=== PATIENT | male | born 1960 | race Caucasian/White ===

== ENCOUNTER 2019-10-07 15:50 | Observation (INO) ==
[2019-10-07] MEDS ORDERED: ATIVAN ONE (16:04)
[2019-10-07 16:20] LABS: BASO# 0.03 X1000 (0.0-0.2); BASO% 0.3 % (0.0-0.8); EOS# 0.16 X1000 (0.0-0.7); EOS% 1.4 % (0.0-10.0); HEMATOCRIT 45.4 % (42.0-52.0); HEMOGLOBIN 14.5 g/dL (14.0-18.0); IMM GRAN# 0.02 X1000 (0.0-0.04); IMM GRAN% 0.2 % (0.0-0.5); LYMPH# 1.75 X1000 (1.2-3.4); LYMPH% 15.8 % (20.5-51.1); MCH 29.7 PG (27-31); MCHC 31.9 g/dL (33-37); MCV 92.8 FL (81-99); MONO# 0.73 X1000 (0.11-0.59); MONO% 6.6 % (1.7-9.3); NEUT# 8.37 X1000 (1.4-6.5); NEUT% 75.7 % (42.2-75.2); PLT 310 X1000 (130-400); RBC 4.89 XMIL (4.7-6.1); WBC 11.06 X1000 (4.8-10.8)
--- NOTE | 2019-10-07 16:37 | Diag Imaging Result Doc PS360 ---
EXAM: CT HEAD/C-SPINE W/O CONTRAST 10/07/2019 HISTORY: Syncope; seizure TECHNIQUE: This exam was performed using automated exposure control, adjustment of mA or kV according to patient size, and/or use of iterative reconstruction technique. COMMENT: Head: There is no evidence of intracranial mass effect, bleed, or abnormal extra-axial fluid collection. The visualized paranasal sinuses are clear. The calvarium is intact. Cervical spine: There is degenerative change in the anterior atlantoaxial joint. There is no prevertebral soft tissue swelling. There is no evidence of acute fracture or subluxation. There are minimal degenerative facet changes particularly at the C4-5 level on the right. IMPRESSION: No evidence of acute intracranial or cervical spine abnormality. Electronically signed by Chencho Roque 10/07/2019 4:34 PM
[2019-10-07] MEDS ORDERED: ATIVAN IV ONE (16:38)
[2019-10-07 16:40] LABS: AGAP 12; ALBUMIN 4.1 g/dL (3.5-5.0); ALKALINE PHOSPHATASE 106 U/L (32-122); BUN 18 mg/dL (8-22); CALCIUM 8.9 mg/dL (8.8-10.2); CHLORIDE 105 mmol/L (98-107); COSMO 284; CREATININE 0.7 mg/dL (0.7-1.2); ESTIMATED GFR > 60; GLUCOSE 107 mg/dL (70-104); GOT 16 U/L (10-34); GPT 23 U/L (10-44); MAGNESIUM 1.8 mg/dL (1.5-2.7); POTASSIUM 4.2 mmol/L (3.5-5.1); SODIUM 141 mmol/L (136-145); TCO2 24 mmol/L (25-35); TOTAL BILIRUBIN < 0.15 mg/dL (0.20-1.00); TOTAL PROTEIN 6.6 g/dL (6.3-8.3)
[2019-10-07 16:55] LABS: URINE SOURCE CLEAN CATCH
[2019-10-07 17:00] LABS: BILIRUBIN URINE NEGATIVE (NEGATIVE); BLOOD URINE SMALL (NEGATIVE); COLOR YELLOW; GLUCOSE URINE NEGATIVE (NEGATIVE); KETONE URINE NEGATIVE (NEGATIVE); LEUKOCYTES URINE NEGATIVE (NEGATIVE); NITRITE URINE NEGATIVE (NEGATIVE); PROTEIN URINE 30 mg/dL (NEGATIVE); SP GRAVITY URINE 1.039; TURBIDITY URINE CLEAR (CLEAR); UR EPITHELIAL CELLS <10 /HPF (<10); URINE BACTERIA NEGATIVE /HPF; URINE RBC <10 /HPF (<10); URINE WBC <10 /HPF (<10); UROBILINOGEN URINE 3 mg/dL (NORMAL)
--- NOTE | 2019-10-07 17:07 | PROVIDER DOCUMENTATION ---
This chart was entered by Vy Borja Scribe, acting as scribe for May Canales CRNP. HPI-Neurological Disorder - General Chief Complaint: Seizure Stated Complaint: seizure Time Seen by Provider: 10/07/19 16:03 Source: patient, family (fiance) - History of Present Illness-Neuro Nature of Presenting Problem: 59 y/o male presents to the ED after syncopal episode this morning and possible seizure activity. The patient states he was sitting at home, went to stand, felt dizzy, and fell to the floor. States he landed on the L side of his head. Patient's , who is at bedside, reports this afternoon patient was sitting and both of his arms began to shake uncontrollably. Reports he then stood up and both his arms continued to shake. States that patient was talking during ep isode. Reports she is unsure exactly how long the episode lasted, however she thinks more than a few minutes. EMS was then called and report patient appeared to be postictal upon arrival. Patient also reports he has been having intermittent L sided CP for the past week. Denies radiation of CP. Reports L shoulder, L forearm, headache, neck pain, and low back pain currently. Denies focal weakness, paresthesia, nausea/vomiting, or SOB. The patient denies drug and/or alcohol use and also denies previous h/o seizure. Reports family hx of seizures. Headache Location: reports: global Severity: reports: moderate Onset/Duration: reports: this morning Timing: reports: still present Context: reports: other (syncopal episode) Character of Altered Mental Status: reports: disoriented, seizure activity Any recent trauma/injury?: reports: none (prior to syncope/fall this morning) New weakness or altered sensation location:: reports: none Cognitive Baseline: alert, oriented x3 Gait Baseline: other (walks with crutches d/t "bad knees and hips") Associated Symptoms: reports: headache, dizziness, neck/back pain. denies: short of breath, fever/chills, nausea, paresthesia, vomiting Similar Symptoms Previously?: No Recently seen or treated by another doctor?: No - Seizure First time to have a seizure?: Yes Witnessed seizure?: Yes (By ) How many seizure episodes?: 1 Episode details: reports: unknown duration Approximate time of the last seizure?: 16:04 (Seizure-like activity in ED witnessed by physician ) Episode Frequency: no prior episodes Status Epilepticus: No Preceding symptoms/context:: none Character of Seizure: reports: shaking in one area (BUE). denies: lost consci ousness Post-ictal Symptoms: reports: confusion, speech difficulty Seizure related injury: none Review of Systems - Adult - REVIEW OF SYSTEMS - ADULT Constitutional: denies: chills, fever, weight gain, weight loss Eyes: reports: no symptoms reported Ears, Nose, Mouth & Throat: reports: no symptoms reported Cardiovascular: reports: see HPI, chest pain (intermittent for 1 week) Respiratory: reports: no symptoms reported. denies: cough, shortness of breath Gastrointestinal: denies: diarrhea, nausea, vomiting Genitourinary: reports: no symptoms reported Musculoskeletal: reports: see HPI, bone pain (L forearm), back pain, joint pain (L shoulder) Integumentary: reports: no symptoms reported Neurological: reports: see HPI, dizziness/vertigo, headache/migraines, seizure, syncope. denies: paresthesia Psychiatric: reports: no symptoms reported Endocrine: reports: no symptoms reported Past History - Adult - PAST MEDICAL HISTORY-ADULT Review of Records: reports: Nursing Assessment Review, Medications Reviewed Cardiovascular: reports: HTN, CO Musculoskeletal: reports: chronic pain, neck/back injury - PRIOR SURGERIES/PROCEDURES Surgical/Procedure History: reports: cardiac stent, orthopedic (extremity), back/neck - IMMUNIZATION STATUS Childhood Immunizations: See Nurse Assessment Flu Vaccine: See Nurse Assessment - FAMILY HISTORY Family History: seizures - SOCIAL HISTORY Smoking: denies Substance Use: denies Living Situation: family Physical Exam- Neurological - Physical Exam-Neuro Exam Limited by: Pt began seizing during initial examination @ 1604; patient reexamined 1630 Initial Vital Signs Reviewed: Yes General Appearance: alert. negative: obtunded Eye Exam: bilateral eye: normal inspection, PERRL (2mm), EOMI HENMT: normocephalic/atraumatic, moist mucous membranes. negative: angioedema Head Injury: tenderness (L parietal). negative: active bleeding, Buck's Sign, raccoon eyes Neck: full range of motion, supple, normal inspection, other (TTP L paraspinous muscles). negative: limited range of motion Respiratory: chest non-tender, lungs clear, normal breath sounds, no pleuratic chest pain, no respiratory distress, no accessory muscle use. negative: rales, rhonchi, wheezing Cardiovascular: regular rate, rhythm, no gallop Peripheral Pulses: radial (R): 2+, radial (L): 2+, dorsalis-pedis (R): 2+, dorsalis-pedis (L): 2+ Extremity: normal range of motion, normal gait, normal inspection, normal capillary refill, pelvis stable, tenderness (L shoulder; L forearm; L hand). 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 negative: facial asymmetry, facial droop, facial weakness, gaze palsy Coordination/Gait: normal finger to nose, normal gait Motor/Sensory: no motor deficit, no sensory deficit, no pronator drift. negative: sensory deficit, weak motor strength RUE, weak motor strength LUE, weak motor strength RLE, weak motor strength LLE Neurologic: senior sales operations analyst II-XII nml as tested, grossly normal. negative: abnormal gait, aphasia, EOM palsy, facial droop, focal weakness, motor weakness, sensory deficit Integumentary: normal color, warm/dry. negative: diaphoresis Psych/Mental Status: normal mood/affect, normal thought content, normal thought process, oriented x 3 - Glascow Coma Scale Best Eye Response: (4) open spontaneously Best Verbal Response: (5) oriented Best Motor Response: (6) obeys commands Total Glascow Score: 15 Progress - PLAN OF CARE/RESULTS Progress/Plan/Lab Results: Vital Signs - 8 hr 10/07/19 15:46 10/07/19 16:00 10/07/19 16:30 Temperature 98.1 F 97.8 F Pulse Rate 87 85 81 Respiratory Rate 18 22 18 Blood Pressure 122/75 139/89 142/90 O2 Sat by Pulse Oximetry 95 96 96 10/07/19 17:32 10/07/19 19:46 Temperature Pulse Rate 100 H 73 Respiratory Rate 25 H 23 Blood Pressure 128/93 109/83 O2 Sat by Pulse Oximetry 94 L Laboratory Results - last 24 hr 10/07/19 10/07/19 10/07/19 16:05 16:05 16:05 WBC 11.06 H RBC 4.89 Hgb 14.5 Hct 45.4 MCV 92.8 MCH 29.7 MCHC 31.9 L RDW Std Deviation 14.0 Plt Count 310 MPV 9.0 Immature Gran % (Auto) 0.2 Neut % (Auto) 75.7 H Lymph % (Auto) 15.8 L [place] % (Auto) 6.6 Eos % (Auto) 1.4 Baso % (Auto) 0.3 Immature Gran # (Auto) 0.02 Neut # (Auto) 8.37 H Lymph # (Auto) 1.75 [place] # (Auto) 0.73 H Eos # (Auto) 0.16 Baso # (Auto) 0.03 Sodium 141 Potassium 4.2 Chloride 105 Carbon Dioxide 24 L Anion Gap 12 BUN 18 Creatinine 0.7 Estimated GFR/1.73 m2 > 60 BUN/Creatinine Ratio 26 Glucose 107 H Calculated Osmolality 284 Calcium 8.9 Magnesium 1.8 Total Bilirubin < 0.15 L AST 16 ALT 23 Alkaline Phosphatase 106 Creatine Kinase Troponin T High Sens Total Protein 6.6 Albumin 4.1 Globulin 3.0 Albumin/Globulin Ratio 2.0 Plasma Lactate Urine Source Urine Color Urine Turbidity Urine pH Ur Specific [place] Urine Protein Ur Glucose (Stick) Ur Ketones (Stick) Urine Blood Urine Nitrite Urine Bilirubin Urobilinogen Dipstick Urine Leukocytes Urine WBC (Auto) Urine RBC (Auto) U Epithel Cells (Auto) Urine Bacteria (Auto) Urine Opiates Screen Ur Oxycodone Screen Urine Methadone Screen U Propoxyphene Qual Ur Barbituates Screen Ur Tricyclics Screen Ur Phencyclidine Scrn Ur Amphetamines Screen U Methamphetamines Scrn U Benzodiazepines Scrn Urine Cocaine Screen U Cannabinoids Screen Plasma/Serum Ethyl Alc 10/07/19 10/07/19 10/07/19 16:05 16:05 16:34 WBC RBC Hgb Hct MCV MCH MCHC RDW Std Deviation Plt Count MPV Immature Gran % (Auto) Neut % (Auto) Lymph % (Auto) [place] % (Auto) Eos % (Auto) Baso % (Auto) Immature Gran # (Auto) Neut # (Auto) Lymph # (Auto) [place] # (Auto) Eos # (Auto) Baso # (Auto) Sodium Potassium Chloride Carbon Dioxide Anion Gap BUN Creatinine Estimated GFR/1.73 m2 BUN/Creatinine Ratio Glucose Calculated Osmolality Calcium Magnesium Total Bilirubin AST ALT Alkaline Phosphatase Creatine Kinase 131 Troponin T High Sens 15 Total Protein Albumin Globulin Albumin/Globulin Ratio Plasma Lactate 0.8 Urine Source Urine Color Urine Turbidity Urine pH Ur Specific [place] Urine Protein Ur Glucose (Stick) Ur Ketones (Stick) Urine Blood Urine Nitrite Urine Bilirubin Urobilinogen Dipstick Urine Leukocytes Urine WBC (Auto) Urine RBC (Auto) U Epithel Cells (Auto) Urine Bacteria (Auto) Urine Opiates Screen Ur Oxycodone Screen Urine Methadone Screen U Propoxyphene Qual Ur Barbituates Screen Ur Tricyclics Screen Ur Phencyclidine Scrn Ur Amphetamines Screen U Methamphetamines Scrn U Benzodiazepines Scrn Urine Cocaine Screen U Cannabinoids Screen Plasma/Serum Ethyl Alc 10/07/19 10/07/19 16:46 16:46 WBC RBC Hgb Hct MCV MCH MCHC RDW Std Deviation Plt Count MPV Immature Gran % (Auto) Neut % (Auto) Lymph % (Auto) [place] % (Auto) Eos % (Auto) Baso % (Auto) Immature Gran # (Auto) Neut # (Auto) Lymph # (Auto) [place] # (Auto) Eos # (Auto) Baso # (Auto) Sodium Potassium Chloride Carbon Dioxide Anion Gap BUN Creatinine Estimated GFR/1.73 m2 BUN/Creatinine Ratio Glucose Calculated Osmolality Calcium Magnesium Total Bilirubin AST ALT Alkaline Phosphatase Creatine Kinase Troponin T High Sens Total Protein Albumin Globulin Albumin/Globulin Ratio Plasma Lactate Urine Source CLEAN CATCH Urine Color YELLOW Urine Turbidity CLEAR Urine pH 6.0 Ur Specific [place] 1.039 Urine Protein 30 A Ur Glucose (Stick) NEGATIVE Ur Ketones (Stick) NEGATIVE Urine Blood SMALL A Urine Nitrite NEGATIVE Urine Bilirubin NEGATIVE Urobilinogen Dipstick 3 A Urine Leukocytes NEGATIVE Urine WBC (Auto) <10 Urine RBC (Auto) <10 U Epithel Cells (Auto) <10 Urine Bacteria (Auto) NEGATIVE Urine Opiates Screen NONE DETECTED Ur Oxycodone Screen PRESUMPTIVE POSITIVE A Urine Methadone Screen NONE DETECTED U Propoxyphene Qual NONE DETECTED Ur Barbituates Screen NONE DETECTED Ur Tricyclics Screen NONE DETECTED Ur Phencyclidine Scrn NONE DETECTED Ur Amphetamines Screen NONE DETECTED U Methamphetamines Scrn NONE DETECTED U Benzodiazepines Scrn PRESUMPTIVE POSITIVE A Urine Cocaine Screen NONE DETECTED U Cannabinoids Screen PRESUMPTIVE POSITIVE A Plasma/Serum Ethyl Alc Orders Category Date Time Status Admit - [facility] Routine AdmDCTranf 10/07/19 18:35 Active Activity - Up with Assistance ORDERED Care 10/07/19 18:35 Active DVT/PE Risk Assess/Protocol [QM] ORDERED Care 10/07/19 18:35 Active Finger Stick Blood Sugar (ED) DIRECTED Care 10/07/19 15:55 Active Intake and Output-Strict ORDERED Care 10/07/19 18:35 Active Notify MD if DIRECTED Care 10/07/19 15:55 Active Nursing- Obtain EKG ONCE Care 10/07/19 16:03 Active Saline Loc NOW Care 10/07/19 15:55 Active Vital Signs Order Q 8-HR ASSESS Care 10/07/19 18:35 Active Z-Document. for Tele Applied ORDERED Care 10/07/19 18:37 Active Regular Diet Diet 10/07/19 18:[address] HEAD/C-SPINE W/O CONTRAST [CT] Stat Exams 10/07/19 16:08 Completed FOREARM-LEFT [RAD] Stat Exams 10/07/19 16:52 Completed HAND COMPLETE LEFT [RAD] Stat Exams 10/07/19 17:02 Completed LUMBAR SPINE [RAD] Stat Exams 10/07/19 16:52 Completed SHOULDER-LEFT [RAD] Stat Exams 10/07/19 16:52 Completed ALCOHOL BLOOD Stat Lab 10/07/19 16:05 Completed CBC WITH ELECTRONIC DIFF [HEME] Stat Lab 10/07/19 16:05 Completed CBC WITH NO DIFF [HEME] Routine Lab 10/08/19 06:00 Ordered CK PROFILE [SP CHEM] Stat Lab 10/07/19 16:05 Completed CK TOTAL [CHEM] Routine Lab 10/08/19 06:00 Ordered COMPREHENSIVE METABOLIC PANEL [CHEM] Routine Lab 10/08/19 06:00 Uncollected COMPREHENSIVE METABOLIC PANEL [CHEM] Stat Lab 10/07/19 16:05 Completed LACTATE, PLASMA [CHEM] Stat Lab 10/07/19 16:34 Completed MAGNESIUM [CHEM] Routine Lab 10/08/19 06:00 Uncollected MAGNESIUM [CHEM] Stat Lab 10/07/19 16:05 Completed TROPONIN T HIGH SENSITIVITY Stat Lab 10/07/19 16:05 Completed TSH Routine Lab 10/08/19 06:00 Uncollected URINALYSIS W/POSS RFLX CULT [URINALYSIS] Stat Lab 10/07/19 16:46 Completed URINE CULTURE [RM] Routine Lab 10/07/19 18:36 Ordered URINE DRUG SCREEN PL Stat Lab 10/07/19 16:46 Completed Lorazepam [Ativan] Med 10/07/19 16:04 Discontinued 2 mg .ROUTE .STK-MED ONE Lorazepam [Ativan] Med 10/07/19 16:38 Discontinued 2 mg IV NOW ONE Oxycodone/APAP 10 mg/325 mg [Percocet-10] Med 10/07/19 18:37 Active 1 each PO Q4H PRN PRN Seizure, New Onset Stat Oth 10/07/19 15:55 Ordered Telemetry [OM.EQ] Routine Oth 10/07/19 18:35 Active EKG [EKG] Stat Ther 10/07/19 16:03 Draft Transfer/Admit Order [TRANSFER] Routine Transfer 10/07/19 18:52 Ordered Lab results, imaging results, plan of care, and need for admission discussed with patient and who agree with and verbalize understanding. Plan of care discussed and formulated in conjunction with Dr. Stephens who co-examined the patient. Result Diagrams: 10/07/19 16:05 10/07/19 16:05 - REASSESSMENT Reassessment #1 Time Reassessed: 16:04 Reassessment Comment: Uncontrollable L arm shaking; no loss of consciousness. Dr Stephens @ bedside - EKG 1 Time of EKG reading by physician:: 16:09 EKG Read and Signed by:: Isiah Stephens EKG Interpretation (*Must complete 3 of following elements*): Abnormal Rate: 100 Rhythm: NSR [place]: left Comments: inferior infarct age undetermined - XRAY 1 XRAY: Bilateral XRAY Study: Lumbar Spine Impression: See EMR Report ([facility] - [address] [place] [address] [address], [place] [address] [facility] - [address] [place] [address] Department of Imaging Patient: EMMIE BRENNER Date: 10/07/19MR#: [id number] : 1960DM Status: REG ERAcct#: [id number] Age/Sex: 59/MRoom/Bed: Loc: P.ED Ordering Ph ysician: May Monzon Family Physician: None,PCP Reason for Procedure: Fall Signed EXAM: LUMBAR SPINE 10/07/2019 HISTORY: Fall TECHNIQUE: Lumbosacral spine with obliques six views COMMENT: There has been posterior lateral fusion with pedicle screws and rods at L5-S1. There is no evidence of acute fracture or subluxation. The disc spaces are fairly well-maintained. IMPRESSION: No evidence of acute bony abnormality. Electronically signed by Chencho Roque 10/07/2019 6:18 PM 10/07/191817 Interpreting Physician: Chencho Roque MD Dictated Date/Time: 10/07/191816 cc: May Canales; None,PCP) 2 XRAY: Left XRAY Study: Forearm Impression: See EMR Report ([facility] - [address] [place] [address] [address], [place] [address] [facility] - [address] [id number] Department of Imaging Patient: EMMIE BRENNER Date: 10/07/19MR#: [id number] : 1960DM Status: [facility] ERAcct#: [id number] Age/Sex: 59/MRoom/Bed: Loc: P.ED Ordering Physician: May Monzon Family Physician: None,PCP Reason for Procedure: Fall ___ Signed EXAM: FOREARM-LEFT 10/07/2019 HISTORY: Fall TECHNIQUE: Left forearm two views COMMENT: There is no evidence of fracture or dislocation. There is negative ulnar variance. IMPRESSION: No acute bony abnormality. Electronically signed by Chencho Roque 10/07/2019 6:17 PM 10/07/191816 Interpreting Physician: Chencho Roque MD Dictated Date/Time: 10/07/191815 cc: May Canales; None,PCP) 3 XRAY: Left XRAY Study: Shoulder Impression: See EMR Report ([facility] - [address], [address], [place] [address] [address] Department of Imaging Patient: EMMIE BRENNER [facility] Date: 10/07/19MR#: [id number] : 1960DM Status: [facility]#: [id number] Age/Sex: 59/MRoom/Bed: Loc: P.ED Ordering Physician: May Monzon Family Physician: None,PCP Reason for Procedure: Fall Signed EXAM: SHOULDER-LEFT 10/07/2019 HISTORY: Fall TECHNIQUE: Left shoulder three views COMMENT: There are some degenerative changes in the acromioclavicular joint. There are bone islands in the humeral head. There is no evidence of acute fracture or dislocation. IMPRESSION: No acute bony abnormality. Electronically signed by Chencho Roque 10/07/2019 6:16 PM 10/07/191815 Interpreting Physician: Chencho Roque MD Dictated Date/Time: 10/07/191815 cc: May Canales; None,PCP) 4 XRAY: Left XRAY Study: Hand Impression: See EMR Report ([facility] - [address], [address], [place] [address] [address] Department of Imaging Patient: EMMIE BRENNER [facility] Date: 10/07/19MR#: [id number] : 1960DM Status: REG [facility]#: [id number] Age/Sex: 59/MRoom/Bed: Loc: P.ED Ordering Physician: May Monzon Family Physician: None,PCP Reason for Procedure: Syncope; fall Signed EXAM: HAND COMPLETE LEFT 10/07/2019 HISTORY: Syncope; fall TECHNIQUE: Left hand three views COMMENT: There is a cyst in the lateral scaphoid. There is no evidence of fracture dislocation or periosteal reaction. IMPRESSION: No evidence of acute bony disease. Electronically signed by Chencho Roque 10/07/2019 6:19 PM 10/07/191818 Interpreting Physician: Chencho Roque MD Dictated Date/Time: 10/07/191817 cc: May Canales; None,PCP) - CT/MRI 1 CT Study: Cervical Spine, Head Impression: See EMR Report (EXAM: CT HEAD/C-SPINE W/O CONTRAST 10/07/2019 HISTORY: Syncope; seizure TECHNIQUE: This exam was performed using automated exposure control, adjustment of mA or kV according to patient size, and/or use of iterative reconstruction technique. COMMENT: Head: There is no evidence of intracranial mass effect, bleed, or abnormal extra-axial fluid collection. The visualized paranasal sinuses are clear. The calvarium is intact. Cervical spine: There is degenerative change in the anterior atlantoaxial joint. There is no prevertebral soft tissue swelling. There is no evidence of acute fracture or subluxation. There are minimal degenerative facet changes particularly at the C4-5 level on the right. IMPRESSION: No evidence of acute intracranial or cervical spine abnormality. Electronically signed by Chencho Roque 10/07/2019 4:34 PM) - CONSULTS/PCP/HOSPITALIST Notification #1 *Consult/PCP/Hospitalist*: Dr. Campuzano, Hospitalist Time Discussed: 18:03 Reason/Comments: Seizure like activity; syncope Consult Disposition: Will see in ED, Admit Departure - Departure Date of Disposition Decision: 10/07/19 Time of Disposition Decision: 18:06 DIAGNOSIS: Seizure-like activity Syncopal episodes Qualifiers: Syncope type: unspecified Qualified Code(s): R55 - Syncope and collapse Head injury Qualifiers: Encounter type: initial encounter Qualified Code(s): S09.90XA - Unspecified injury of head, initial encounter Disposition: ADMITTED INPATIENT 09 Certified Medical Emergency: Emergent Condition: Stable Referrals and Follow-Ups: None,PCP [Primary Care Provider] - - Critical Care Note This patient required my direct & personal management of CC.: No Attestation - Physician/ TI Attestation Patient care was provided by Advanced Practice Provider:: Yes Advanced Practice Provider:: May Canales Advanced Practice Provider documentation review:: The Mid-level provider documentation, treatment plan and medical decision making was reviewed by the physician who agrees with all treatment and medical decision making by the MLP. The physician spent face to face time with patient:: Yes (Angelo) Advanced Practice Provider documentation review:: Supervising physician onsite and consulted in the evaluation and care of this patient. The physician did have a face to face encounter with the patient. This chart was documented by the indicated scribe, (Vy Borja, Sussy) and accurately reflects the services I performed and decisions made by me, May Canales CRNP, as attested by the provider's signature.
[2019-10-07 17:08] LABS: UR BENZODIAZEPIN QUAL PRESUMPTIVE POSITIVE (NONE DETECT); UR CANNABINOIDS QUAL PRESUMPTIVE POSITIVE (NONE DETECT)
[2019-10-07 17:09] LABS: UR AMPHETAMINES QUAL NONE DETECTED (NONE DETECT); UR BARBITUATES QUAL NONE DETECTED (NONE DETECT); UR COCAINE QUAL NONE DETECTED (NONE DETECT); UR METHADONE QUAL NONE DETECTED (NONE DETECT); UR METHAMPHETAMINE QUAL NONE DETECTED (NONE DETECT); UR OPIATES QUAL NONE DETECTED (NONE DETECT); UR OXYCODONE QUAL PRESUMPTIVE POSITIVE (NONE DETECT); UR PCP QUAL NONE DETECTED (NONE DETECT); UR PROPOXYPHENE QUAL NONE DETECTED (NONE DETECT); UR TCA QUAL NONE DETECTED (NONE DETECT)
--- NOTE | 2019-10-07 17:13 | EKG Report ---
Test Performed on : 10/07/2019 4:09:17 PM Test Reason : Syncope Blood Pressure : / mmHG Vent. Rate : 100 BPM Atrial Rate : 100 BPM P-R Int : 164 ms QRS Dur : 100 ms QT Int : 360 ms P-R-T Axes : 055 -31 034 degrees QTc Int : 464 ms Normal sinus rhythm. Left axis deviation Inferior infarct , age undetermined Abnormal ECG No previous ECGs available Unconfirmed Result
--- NOTE | 2019-10-07 18:18 | Diag Imaging Result Doc PS360 ---
EXAM: SHOULDER-LEFT 10/07/2019 HISTORY: Fall TECHNIQUE: Left shoulder three views COMMENT: There are some degenerative changes in the acromioclavicular joint. There are bone islands in the humeral head. There is no evidence of acute fracture or dislocation. IMPRESSION: No acute bony abnormality. Electronically signed by Chencho Roque 10/07/2019 6:16 PM
--- NOTE | 2019-10-07 18:19 | Diag Imaging Result Doc PS360 ---
EXAM: FOREARM-LEFT 10/07/2019 HISTORY: Fall TECHNIQUE: Left forearm two views COMMENT: There is no evidence of fracture or dislocation. There is negative ulnar variance. IMPRESSION: No acute bony abnormality. Electronically signed by Chencho Roque 10/07/2019 6:17 PM
--- NOTE | 2019-10-07 18:20 | Diag Imaging Result Doc PS360 ---
EXAM: LUMBAR SPINE 10/07/2019 HISTORY: Fall TECHNIQUE: Lumbosacral spine with obliques six views COMMENT: There has been posterior lateral fusion with pedicle screws and rods at L5-S1. There is no evidence of acute fracture or subluxation. The disc spaces are fairly well-maintained. IMPRESSION: No evidence of acute bony abnormality. Electronically signed by Chencho Roque 10/07/2019 6:18 PM
--- NOTE | 2019-10-07 18:21 | Diag Imaging Result Doc PS360 ---
EXAM: HAND COMPLETE LEFT 10/07/2019 HISTORY: Syncope; fall TECHNIQUE: Left hand three views COMMENT: There is a cyst in the lateral scaphoid. There is no evidence of fracture dislocation or periosteal reaction. IMPRESSION: No evidence of acute bony disease. Electronically signed by Chencho Roque 10/07/2019 6:19 PM
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
[2019-10-07] MEDS: PERCOCET-10 PO PRN (21:08)
[2019-10-07] MEDS: NICODERM PATCH TD SCH (23:45)
[2019-10-08] MEDS: PERCOCET-10 PO PRN ×3 (04:00→13:07)
[2019-10-08 05:51] LABS: HEMATOCRIT 46.8 % (42.0-52.0); HEMOGLOBIN 14.7 g/dL (14.0-18.0); MCH 29.3 PG (27-31); MCHC 31.4 g/dL (33-37); MCV 93.4 FL (81-99); MPV 9.5 FL (7.4-10.4); RBC 5.01 XMIL (4.7-6.1); RDW 14.1 % (11.5-14.5); WBC 8.76 X1000 (4.8-10.8)
[2019-10-08 06:00] LABS: AGAP 12; ALKALINE PHOSPHATASE 105 U/L (32-122); BUN 19 mg/dL (8-22); CALCIUM 8.8 mg/dL (8.8-10.2); CHLORIDE 107 mmol/L (98-107); CK TOTAL 84 U/L (24-204); COSMO 288; CREATININE 0.5 mg/dL (0.7-1.2); ESTIMATED GFR > 60; GLUCOSE 111 mg/dL (70-104); GOT 13 U/L (10-34); GPT 20 U/L (10-44); SODIUM 143 mmol/L (136-145); TCO2 24 mmol/L (25-35); TOTAL BILIRUBIN < 0.15 mg/dL (0.20-1.00); TOTAL PROTEIN 6.5 g/dL (6.3-8.3)
[2019-10-08] MEDS ORDERED: PERCOCET-10 PO PRN (08:08)
[2019-10-08] MEDS: NICODERM PATCH TD SCH (08:34)
[2019-10-08] MEDS ORDERED: NICODERM PATCH TD SCH (09:00)
[2019-10-08] MEDS ORDERED: PRINIVIL PO SCH (09:00)
[2019-10-08] MEDS ORDERED: PLAVIX PO SCH (09:00)
[2019-10-08] MEDS ORDERED: LEXAPRO PO SCH (09:00)
[2019-10-08] MEDS ORDERED: MOBIC PO SCH (09:00)
[2019-10-08] MEDS ORDERED: DEPAKOTE PO SCH (09:00)
[2019-10-08] MEDS ORDERED: LAMICTAL PO SCH (11:45)
--- NOTE | 2019-10-08 15:40 | Diag Imaging Result Doc PS360 ---
EXAM: MRI BRAIN W/O CONTRAST HISTORY: seizure type activity TECHNIQUE: MRI brain without contrast. Axial, sagittal, and coronal images obtained in multiple sequences. COMPARISON: None. FINDINGS: No recent infarct. No mass or midline shift. No hydrocephalus. There is mild atrophy. No epidural or subdural fluid collection normal orbits. No sinus opacification or air-fluid levels. IMPRESSION: 1.No recent infarct or mass 2.Atrophy Electronically signed by Immanuel Pearl 10/08/2019 3:38 PM
[2019-10-08 15:42] VITALS: BP 127/82
[2019-10-08] MEDS ORDERED: PNEUMOVAX 23 IM ONE (16:39)
[2019-10-08] MEDS ORDERED: LIPITOR PO SCH (21:00)
[2019-10-08] MEDS ORDERED: AMBIEN PO SCH (21:00)
--- NOTE | 2019-10-09 14:38 | DISCHARGE SUMMARY ---
ADMISSION DATE: 10/07/2019 DISCHARGE DATE: 10/08/2019 ADDENDUM: Patient seen and examined by myself. Full note dictated and discussed with nurse practitioner. Patient presented to the hospital with seizure-type activity. Thankfully, he was almost immediately awake, alert, and oriented afterward. His initial seizure was at home in which he was violently shaking [*]but thankfully he did not lose muscle tone in his torso or legs. He was able to sit in the chair throughout the entire event. He also was able to actually stand up acutely during this event. During the hospital, it was uneventful, however, he did get upset that he did get his Percocet and Lyrica as well as other chronic home medications. At that point, he told me that he had a headache and he felt like he was going having another seizure. Approximately 20 minutes after I left the room he apparently had another shaking episode and again was immediately awake, alert, oriented within 3 minutes of this episode. We are going to discharge him home. His MRI was negative. He will need to follow up outpatient with Neurology for an EEG. cc: Duncan Campuzano MD
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
== END 2019-10-08 17:07 | disposition home or self-care (01) ==
LOC: P.ED 15:50 → P.MEDSURG 20:38 → INTOOBSV 20:38
PROVIDERS: ATTEND Family Medicine